=== PATIENT | female | born 1990 | race Caucasian/White ===

== ENCOUNTER 2021-06-18 08:12 | Outpatient (CLI) | payer OTHER ==
[~2021-06-18] VITALS: Ht 167.6 cm; Wt 83.2 kg
== END 2021-06-18 20:10 | disposition home or self-care (01) ==
LOC: LDOP 08:12
PROVIDERS: ATTEND Obstetrics & Gynecology
DX: O46.93 Antepartum hemorrhage, unspecified, third trimester (principal); Z3A.37 37 weeks gestation of pregnancy
CPT/HCPCS: 59025; 76819

== ENCOUNTER 2021-06-19 11:42 | Inpatient (IN) | payer OTHER ==
[~2021-06-19] VITALS: Ht 167.6 cm; Wt 83.6 kg
[2021-06-19 13:01] VITALS: BP 128/88
[2021-06-19] MEDS ORDERED: OXYTOCIN 30U/ 0.9% NaCL 500ML 500 ML ONE (13:33)
[2021-06-19] MEDS ORDERED: NEWBORN KIT ONE (13:33)
[2021-06-19] MEDS ORDERED: D5%-LACTATED RINGERS 1,000 ML IV SCH (14:00)
[2021-06-19] MEDS ORDERED: TERBUTALINE 1 MG/ML, 1ML IVPush PRN (14:00)
[2021-06-19] MEDS ORDERED: TERBUTALINE 1 MG/ML, 1ML SQ PRN (14:00)
[2021-06-19] MEDS ORDERED: OXYTOCIN 30U/ 0.9% NaCL 500ML 500 ML IV PRN ×2 (14:00)
[2021-06-19] MEDS ORDERED: LACTATED RINGERS 1,000 ML IV SCH ×2 (14:00→19:00)
[2021-06-19] MEDS ORDERED: FENTANYL PF 100 MCG/2ML IV PRN (14:00)
[2021-06-19] MEDS ORDERED: OXYTOCIN 30U/ 0.9% NaCL 500ML 500 ML IV ONE (14:00)
[2021-06-19] MEDS ORDERED: ONDANSETRON 2MG/ML, 2ML IVPush PRN ×2 (14:00→19:00)
[2021-06-19] MEDS ORDERED: FENTANYL PF 100 MCG/2ML IVPush PRN (14:00)
[2021-06-19] MEDS: LIDOCAINE 4% CREAM 15GM TUBE TP PRN (14:19)
[2021-06-19 14:25] LABS: BASOPHILS % (AUTO) 0 % (0-1); EOSINOPHILS % (AUTO) 1 % (1-7); LYMPHOCYTES % (AUTO) 16 % (22-44); MEAN CORPUSCULAR HEMOGLOBIN 26.1 pg (27.0-34.8); MEAN CORPUSCULAR HGB CONC 33.1 g/dL (32.4-35.8); MEAN PLATELET VOLUME 8.4 fL (7.4-10.4); MONOCYTES % (AUTO) 6 % (2-9); NEUTROPHILS % (AUTO) 77 % (42-75); PLATELET COUNT 200 x10^3/uL (130-400); RED BLOOD COUNT 4.36 x10^6/uL (3.82-5.3); RED CELL DISTRIBUTION WIDTH 16.6 % (9.6-15.2)
[2021-06-19] MEDS ORDERED: PENICILLIN GK 5,000,000 UNITS in DEXTROSE 5% 100 ML IVPB ONE (14:30)
[2021-06-19 15:25] VITALS: BP 122/88
[2021-06-19] MEDS ORDERED: BUPIVACAINE 0.25% ONE (18:30)
[2021-06-19] MEDS: PENICILLIN GK 2,500,000 UNITS in DEXTROSE 5% 100 ML IVPB SCH ×2 (18:30→22:30)
[2021-06-19] MEDS ORDERED: FENTANYL/BUPIV./NS/PF 250 ML EPIDCONT ONE (18:30)
[2021-06-19] MEDS ORDERED: NALOXONE 0.4 MG/ML, 1ML IVPush PRN (19:00)
[2021-06-19] MEDS ORDERED: FENTANYL/BUPIV./NS/PF 250 ML EPIDCONT SCH (19:00)
[2021-06-19] MEDS ORDERED: EPHEDRINE 50 MG/ML, 1ML IVPush PRN (19:00)
[2021-06-19] MEDS ORDERED: DIPHENHYDRAMINE 50 MG/ML, 1ML IVPush PRN (19:00)
[2021-06-19] MEDS ORDERED: LACTATED RINGERS 1,000 ML IVBOLUS PRN (19:30)
[2021-06-19] MEDS: LIDOCAINE 4% CREAM 15GM TUBE EXT PRN (22:02)
[2021-06-19] MEDS ORDERED: METOCLOPRAMIDE 5 MG/ML, 2ML IV PRN (22:30)
[2021-06-19] MEDS ORDERED: ONDANSETRON 2MG/ML, 2ML IV PRN (22:30)
[2021-06-19] MEDS ORDERED: METHYLERGONOVINE 0.2 MG/ML IM PRN (22:30)
[2021-06-19] MEDS ORDERED: OXYTOCIN 30U/ 0.9% NaCL 500ML 500 ML IV SCH (22:30)
[2021-06-19] MEDS ORDERED: OXYcodone IR 5MG TABLET PO PRN ×2 (22:30)
[2021-06-19] MEDS ORDERED: GLYCERIN ADULT SUPP PR PRN (22:30)
[2021-06-19] MEDS ORDERED: ACETAMINOPHEN 325 MG TABLET PO PRN (22:30)
[2021-06-19] MEDS ORDERED: SIMETHICONE 80 MG CHEW TAB PO PRN (22:30)
[2021-06-19] MEDS ORDERED: MISOPROSTOL 200 MCG TABLET PR PRN (22:30)
[2021-06-19] MEDS ORDERED: DIPH,PERTUSS(ACELL),TET VAC/PF NC IM-VACC PRN (22:30)
[2021-06-19] MEDS ORDERED: BISACODYL 10 MG SUPP PR PRN (22:30)
[2021-06-20 00:10] VITALS: BP 113/74
[2021-06-20] MEDS: PENICILLIN GK 2,500,000 UNITS in DEXTROSE 5% 100 ML IVPB SCH ×2 (02:30→06:30)
[2021-06-20] MEDS: IBUPROFEN 600 MG TABLET PO PRN ×4 (02:40→20:49)
[2021-06-20 05:05] VITALS: BP 116/72
[2021-06-20 06:49] LABS: BASOPHILS % (AUTO) 1 % (0-1); EOSINOPHILS % (AUTO) 1 % (1-7); LYMPHOCYTES % (AUTO) 18 % (22-44); MEAN CORPUSCULAR HEMOGLOBIN 26.1 pg (27.0-34.8); MEAN PLATELET VOLUME 8.3 fL (7.4-10.4); MONOCYTES % (AUTO) 6 % (2-9); NEUTROPHILS % (AUTO) 74 % (42-75); PLATELET COUNT 162 x10^3/uL (130-400); RED BLOOD COUNT 3.85 x10^6/uL (3.82-5.3); RED CELL DISTRIBUTION WIDTH 16.4 % (9.6-15.2)
[2021-06-20 08:30] VITALS: BP 114/76
[2021-06-20] MEDS: PRENATAL VIT/IRON/FA 1 EACH TABLET PO SCH (08:54)
[2021-06-20] MEDS: DOCUSATE 100 MG CAPSULE PO PRN ×2 (08:54→20:39)
[2021-06-20] MEDS: LIDOCAINE 4% CREAM 15GM TUBE TP PRN (08:57)
[2021-06-20 12:30] VITALS: BP 113/77
[2021-06-20 17:00] VITALS: BP 115/78
[2021-06-20 20:30] VITALS: BP 115/75
[2021-06-20] MEDS: LIDOCAINE 4% CREAM 15GM TUBE EXT PRN (20:53)
[2021-06-21 08:16] VITALS: BP 111/77
[2021-06-21] MEDS: PRENATAL VIT/IRON/FA 1 EACH TABLET PO SCH (08:16)
[2021-06-21] MEDS: LIDOCAINE 4% CREAM 15GM TUBE TP PRN (08:16)
[2021-06-21] MEDS: IBUPROFEN 600 MG TABLET PO PRN (08:16)
[2021-06-21] MEDS: DOCUSATE 100 MG CAPSULE PO PRN (08:16)
[2021-06-21] MEDS ORDERED: DOCU-131 PO (09:26)
[2021-06-21] MEDS ORDERED: IBUP-1222 PO (09:26)
== END 2021-06-21 10:10 | disposition home or self-care (01) | DRG 807 ==
LOC: LDOP 11:42 → LDIP 14:06 → 2NW 06-20 00:03
PROVIDERS: ADMIT Obstetrics & Gynecology; ATTEND Obstetrics & Gynecology
PROC: 10E0XZZ Delivery of Products of Conception, External Approach (ICD-10-PCS; principal; 2021-06-19)
PROC: 0HQ9XZZ Repair Perineum Skin, External Approach (ICD-10-PCS; 2021-06-19)
PROC: 3E0R3BZ Introduction of Anesthetic Agent into Spinal Canal, Percutaneous Approach (ICD-10-PCS; 2021-06-19)
PROC: 00HU33Z Insertion of Infusion Device into Spinal Canal, Percutaneous Approach (ICD-10-PCS; 2021-06-19)
DX: O76 Abnormality in fetal heart rate and rhythm complicating labor and delivery (principal); Z37.0 Single live birth; O99.824 Streptococcus B carrier state complicating childbirth; O99.02 Anemia complicating childbirth; D52.9 Folate deficiency anemia, unspecified; O36.8130 Decreased fetal movements, third trimester, not applicable or unspecified; O70.0 First degree perineal laceration during delivery; Z3A.37 37 weeks gestation of pregnancy; O75.89 Other specified complications of labor and delivery; K64.4 Residual hemorrhoidal skin tags
CPT/HCPCS: 36415; 85025; 86592; 86850; 86900; 87635; G0378; J2540; J2590; J3010; J7120